=== PATIENT | male | born 1950 | race Caucasian/White ===

== ENCOUNTER 2020-09-13 02:09 | Emergency (ER) | payer MEDICARE, OTHER ==
[~2020-09-13] VITALS: Ht 182.9 cm; Wt 112.9 kg
--- NOTE | 2020-09-13 02:12 | PHYS DOC ---
Past History Past Medical History: A-Fib, High Cholesterol General Adult HPI: HPI: "My heart was racing to night.. it my Afib.. it may be related to my anti cholesterol meds.... It happens every time I take that med.. " ". 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 " It just that the afib.. has not corrected it self.. :'' . Patient is a 70 year old male who presents with above hx and complaints tach ycardia which he relates to his A. fib. Patient normally follows with Dr. Lyles on the [facility]. Pt.follows locally with Dr. Wilson. Locally. Patient has known history of A. fib. And usually well controlled. Patient is on Eliquis. Patient denies any changes in meds other than starting a cholesterol med which seems to be associated with exacerbations of his A. fib. Patient denies any travel. Patient denies any significant ill contacts. Review of Systems: Review of Systems: Constitutional: Denies fever or chills Eyes: Denies change in visual acuity HENT: Denies nasal congestion or sore throat Respiratory: Denies cough or shortness of breath Cardiovascular: Complains of A. fib with rapid ventricular response GI: Denies abdominal pain, nausea, vomiting, bloody stools or diarrhea : Denies dysuria Musculoskeletal: Denies back pain or joint pain Integument: Denies rash Neurologic: Denies headache, focal weakness or sensory changes Endocrine: Denies polyuria or polydipsia Lymphatic: Denies swollen glands Psychiatric: Denies depression or anxiety Family History: Family History: Noncontributory to presentation Current Medications: Current Meds: See nursing for home meds Allergies: Allergies: No known drug allergies Physical Exam: PE: Constitutional: , no acute distress, non-toxic appearance. [] HENT: Normocephalic, atraumatic, bilateral external ears normal, oropharynx moist, no oral exudates, nose normal. [] Eyes: PERRLA, EOMI, conjunctiva normal, no discharge. Glasses Neck: Normal range of motion, no tenderness, supple, no stridor. [] Cardiovascular: Irregular heart rate and irregular rhythm, no murmur [] Lungs & Thorax: Bilateral breath sounds clear to auscultation [] Abdomen: Bowel sounds normal, soft, no tenderness, no masses, no pulsatile masses. [] PMI to the left Skin: Warm, dry, no erythema, no rash. [] Back: No tenderness, no CVA tenderness. [] Extremities: No tenderness, no cyanosis, no clubbing, ROM intact, no edema. [] No cording Neurologic: Alert and oriented X 3, moves all extremities on request has distal sensory n, no focal deficits noted. [] Psychologic: Affect anxious, judgement normal, mood normal. [] EKG: EKG: My interpretation of EKG shows a A. fib rhythm with rapid ventricular response ventricular rate 119. There is leftward axis. There is some abnormal findings and lateral leads but no findings acute STEMI or contralateral changes. [] My interpretation of second EKG shows a A. fib with rhythm with a ventricular response of 91. Findings of acute STEMI with contralateral changes. No acute morphology change except slowing of ventricular rate. Radiology/Procedures: Radiology/Procedures: [][address] [place] [id number] IMAGING REPORT Signed PATIENT: PILAR MILLER ACCOUNT: [id number] : 1950 LOCATION: ER AGE: 70 SEX: M EXAM STATUS: REG ER ORD. PHYSICIAN: AMINATA COELHO MD REASON: tachy, dyspnea PROCEDURE: PORTABLE CHEST 1V XR CHEST 1V INDICATION: tachy, dyspnea . COMPARISON STUDY: None. FINDINGS: Lungs: Normal lung volume. No pulmonary mass or consolidation. The tracheobronchial tree and hilar structures are normal. Pleura: No pleural effusion or pneumothorax. Heart and Mediastinum: The cardiomediastinal silhouette is normal. The great vessels of the thorax are normal. Bones and Soft Tissues: The bones and soft tissues are within normal limits. IMPRESSION: No acute cardiopulmonary process. Electronically signed by: Ines Cotto MD (09/13/2020 2:54 AM) [id number] DICTATED AND SIGNED BY: INES COTTO MD DATE: 09/13/20 0248 CC: CARRILLO WILSON MD; AMINATA COELHO MD ~MTH0 0 Heart Score: C/O Chest Pain: N/A HEART Score for Chest Pain: HEART Score for Chest Pain Response (Comments) Value History Moderately Suspicious 1 ECG Nonspecific Repolarizatio 1 Age > 65 2 Risk Factors 1 or 2 Risk Factors 1 Troponin < Normal Limit 0 Total 5 Risk Factors: Risk Factors: DM, Current or recent (<one month) smoker, HTN, HLP, family history of CAD, obesity. Risk Scores: Score 0 - 3: 2.5% MACE over next 6 weeks - Discharge Home Score 4 - 6: 20.3% MACE over next 6 weeks - Admit for Clinical Observation Score 7 - 10: 72.7% MACE over next 6 weeks - Early Invasive Strategies Course & Med Decision Making: Course & Med Decision Making Pertinent Labs and Imaging studies reviewed. (See chart for details) Patient received 2 doses of Cardizem 10 mg IV. Resulted in slowing of heart rate into the range of 70-100. Patient initial cardiac enzymes were normal. Patient requesting discharge home. He is to call his reservations agent in the morning. Discuss changes in his meds. Return if any concerns. Continue his Eliquis. Push high potassium fruit juices. Would hold the offending anticholesterol med until discussion with his primary and reservations agent. Impression: 1. A. fib with rapid ventricular response 2. Mildly hypokalemia 3.4 [] Dragon Disclaimer: Dragon Disclaimer: This electronic medical record was generated, in whole or in part, using a voice recognition dictation system. Departure Departure: Referrals: CARRILLO WILSON MD (PCP) Oseason Disclaimer This chart was dictated in whole or in part using Voice Recognition software in a busy, high-work load, and often noisy Emergency Department environment. It may contain unintended and wholly unrecognized errors or omissions. Dragon Disclaimer This chart was dictated in whole or in part using Voice Recognition software in a busy, high-work load, and often noisy Emergency Department environment. It may contain unintended and wholly unrecognized errors or omissions. AMINATA COELHO MD Sep 13, 2020 02:12
[2020-09-13] MEDS ORDERED: ASPIRIN CHEWABLE 81 MG TABLET. PO ONE (02:15)
--- NOTE | 2020-09-13 02:57 | RAD ---
XR CHEST 1V INDICATION: tachy, dyspnea . COMPARISON STUDY: None. FINDINGS: Lungs: Normal lung volume. No pulmonary mass or consolidation. The tracheobronchial tree and hilar st ructures are normal. Pleura: No pleural effusion or pneumothorax. Heart and Mediastinum: The cardiomediastinal silhouette is normal. The great vessels of the thorax ar e normal. Bones and Soft Tissues: The bones and soft tissues are within normal limits. IMPRESSION: No acute cardiopulmonary process. Electronically signed by: Dennis Cotto MD (09/13/2020 2:54 AM) [id number]
--- NOTE | 2020-09-13 03:00 | EKG ---
[address] [address] Test Date: 2020-09-13 Test Time: 02:18:56 Pat Name: PILAR MILLER Department: Room: Gender: M [employer] Professional: : 1950 Requested By: AMINATA COELHO Order Number: [id number] Reading MD: Measurements Intervals [place] Rate: 119 P: [place]: QRS: -20 QRSD: 96 T: 54 QT: 338 QTc: 483 Interpretive Statements IRREGULAR RHYTHM, NO P-WAVE FOUND LEFTWARD AXIS T ABNORMALITY IN HIGH LATERAL LEADS ABNORMAL ECG RI6.02 No previous ECG available for comparison
[2020-09-13 03:08] LABS: BASO # 0.1 x10^3/uL (0.0-0.2); BASO % 1 % (0-3); EOS # 0.1 x10^3/uL (0.0-0.7); EOS % 2 % (0-3); HEMATOCRIT 42.9 % (39.0-53.0); HEMOGLOBIN 15.1 g/dL (13.0-17.5); LYMPH # 1.1 x10^3/uL (1.0-4.8); LYMPH % 24 % (24-48); MEAN CORPUSCULAR HEMOGLOBIN 33 pg (25-35); MEAN CORPUSCULAR HGB CONC 35 g/dL (31-37); MEAN CORPUSCULAR VOLUME 94 fL (79-100); MONO # 0.4 x10^3/uL (0.0-1.1); MONO % 9 % (0-9); NEUT # 2.9 x10^3uL (1.8-7.7); NEUT % 64 % (31-73); PLATELET COUNT 108 x10^3/uL (140-400); RED BLOOD COUNT 4.58 x10^6/uL (4.30-5.70); RED CELL DISTRIBUTION WIDTH 13.5 % (11.5-14.5); WHITE BLOOD COUNT 4.6 x10^3/uL (4.0-11.0)
[2020-09-13] MEDS ORDERED: APIX5TAB3 PO (03:08)
[2020-09-13] MEDS ORDERED: IRBE300T23 PO (03:08)
[2020-09-13] MEDS ORDERED: CARV3.12 PO (03:08)
[2020-09-13] MEDS ORDERED: VITA15LO PO (03:08)
[2020-09-13] MEDS ORDERED: AMLO-187 PO (03:08)
[2020-09-13 03:16] LABS: CALCIUM 8.4 mg/dL (8.5-10.1); CREATININE 0.8 mg/dL (0.7-1.3); POTASSIUM 3.4 mmol/L (3.5-5.1)
[2020-09-13 03:30] LABS: ALBUMIN 3.8 g/dL (3.4-5.0); DIRECT BILIRUBIN 0.1 mg/dL (0.0-0.2); MAGNESIUM 2.2 mg/dL (1.8-2.4); TOTAL BILIRUBIN 0.7 mg/dL (0.2-1.0); TOTAL PROTEIN 6.4 g/dL (6.4-8.2)
[2020-09-13] MEDS ORDERED: dilTIAZem 25 MG/5 ML VIAL IVP PRN ×2 (03:30→03:45)
[2020-09-13] MEDS ORDERED: MAGNESIUM HYDROXIDE 2,400 MG/30 ML ORAL.SUSP. PO ONE (03:45)
[2020-09-13] MEDS ORDERED: POTASSIUM CHLORIDE 20 MEQ TABLET.ER. PO ONE (03:45)
[2020-09-13 04:04] VITALS: BP 132/73
--- NOTE | 2020-09-13 04:48 | EKG ---
[address] [address] Test Date: 2020-09-13 Test Time: 04:37:05 Pat Name: PILAR MILLER Department: Room: Gender: M [employer]: ADAMA : 1950 Requested By: AMINATA COELHO Order Number: [id number] Reading MD: Measurements Intervals [place] Rate: 91 P: [place]: QRS: -28 QRSD: 96 T: 24 QT: 344 QTc: 425 Interpretive Statements IRREGULAR RHYTHM, NO P-WAVE FOUND LEFTWARD AXIS OTHERWISE NORMAL ECG RI6.02 Compared to ECG 09/13/2020 04:35:15 No significant changes
== END 2020-09-13 04:50 | disposition home or self-care (01) ==
LOC: ER 02:09
DX: I48.20 Chronic atrial fibrillation, unspecified (principal); E87.6 Hypokalemia; E78.00 Pure hypercholesterolemia, unspecified; Z79.01 Long term (current) use of anticoagulants
CPT/HCPCS: 36415; 71045; 80048; 80076; 82550; 83690; 83735; 83880; 84443; 84484; 85025; 85379; 85610; 85730; 93005; 96374; 99285; J3490